=== PATIENT | female | born 1995 | race Two or more races ===

== ENCOUNTER 2022-06-12 09:13 | Emergency (ER) | payer OTHER ==
[~2022-06-12] VITALS: Ht 152.4 cm; Wt 52.2 kg
== END 2022-06-12 10:20 | disposition home or self-care (01) ==
LOC: ER 09:13
DX: S29.9XXA Unspecified injury of thorax, initial encounter (principal); V49.9XXA Car occupant (driver) (passenger) injured in unspecified traffic accident, initial encounter; Y93.9 Activity, unspecified; Y92.9 Unspecified place or not applicable; S13.9XXA Sprain of joints and ligaments of unspecified parts of neck, initial encounter